=== PATIENT | male | born 1985 | race Caucasian/White ===

== ENCOUNTER 2017-10-16 03:45 | Observation (INO) | payer BC, OTHER ==
[2017-10-16] VITALS (9 sets, daily range): BP systolic 143–179; BP diastolic 87–111; PULSE 93–112; RESP 17–20; TEMP 98; O2SAT 96–98
[~2017-10-16] VITALS: Ht 175.3 cm; Wt 120.0 kg
[~2017-10-16 03:45] MED LIST: ENOX40P SQ; LORT7.5T3 PO
--- NOTE | 2017-10-16 04:32 | PD ---
HPI Chief Complaint: Chest Pain Time Seen by Provider: 04:10 Travel History International Travel<30 days: No Contact w/Intl Traveler<30days: No Traveled to known affect area: No History of Present Illness HPI Patient is a 32-year-old man who was lying down watching TV . He sat up to let his dog out and had severe epigastric pain across his chest patient. Patient has no cardiac history patient had severe burning across his entire epigastrium left and right also. 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) Thoracic Surgery: No Social History Alcohol Use: Yes (wine nightly) Tobacco Use: Yes (1/2 ppd) Substance Use: Yes (marijuana) Allergies-Medications (Allergen,Severity, Reaction): Coded Allergies: ciprofloxacin (Unverified Allergy, Severe, HIVES, 10/16/17) levofloxacin (Unverified Allergy, Severe, HIVES, 10/16/17) Reported Meds & Prescriptions Reported Meds & Active Scripts Active Hydrochlorothiazide 25 Mg Tab 25 Mg PO DAILY Review of Systems Except as stated in HPI: all other systems reviewed are Neg Eyes: No: Diploplia, Blurred Vision Cardiovascular: Positive: Chest Pain or Discomfort, Tachycardia, No: Diaphoresis Respiratory: No: Shortness of Breath, Sneezing Gastrointestinal: No: Nausea, Vomiting, Abdominal Pain Physical Exam Narrative GENERAL: DILATED PUPILS AND TACHYCARDIC AND HTN 180/115 BP SKIN: Warm and dry. HEAD: Atraumatic. Normocephalic. EYES: Pupils equal and round. No scleral icterus. No injection or drainage. ENT: No nasal bleeding or discharge. Mucous membranes pink and moist. NECK: Trachea midline. No JVD. CARDIOVASCULAR: Regular rate and rhythm. TACHY AND HTN 158/95 RESPIRATORY: No accessory muscle use. Clear to auscultation. Breath sounds equal bilaterally. GASTROINTESTINAL: Abdomen soft, non-tender, nondistended. Hepatic and splenic margins not palpable. MUSCULOSKELETAL: Extremities without clubbing, cyanosis, or edema. No obvious deformities. NEUROLOGICAL: Awake and alert. No obvious cranial nerve deficits. Motor grossly within normal limits. Five out of 5 muscle strength in the arms and legs. Normal speech. PSYCHIATRIC: Appropriate mood and affect; insight and judgment normal. Data Data Last Documented VS Vital Signs Date Time Temp Pulse Resp B/P (MAP) Pulse Ox O2 Delivery O2 Flow Rate FiO2 10/16/17 06:09 93 20 158/94 (115) 97 Room Air 10/16/17 03:47 98.0 Orders Orders Electrocardiogram (10/16/17 04:11) Complete Blood Count With Diff (10/16/17 04:11) Basic Metabolic Panel (Bmp) (10/16/17 04:11) Ckmb (Isoenzyme) Profile (10/16/17 04:11) Troponin I (10/16/17 04:11) Chest, Single Ap (10/16/17 04:11) Iv Access Insert/Monitor (10/16/17 04:11) Ecg Monitoring (10/16/17 04:11) Oxygen Administration (10/16/17 04:11) Oximetry (10/16/17 04:11) Hepatic Functional Panel (10/16/17 04:15) CKMB (10/16/17 04:15) CKMB% (10/16/17 04:15) Pantoprazole Inj (Protonix Inj) (10/16/17 05:30) Admit Order (Ed Use Only) (10/16/17 06:26) Place In Observation (10/16/17 06:26) Activity Bed Rest With Brp (10/16/17 06:26) Vital Signs (Adult) Q4H (10/16/17 06:26) Cardiac Rhythm .As Directed (10/16/17 06:26) Notify Dr: Other .PRN (10/16/17 06:26) Notify Dr. Parameters (10/16/17 06:26) Resp Oxygen Nasal Cannula (10/16/17 ) Ckmb (Isoenzyme) Profile (10/16/17 06:26) Ckmb (Isoenzyme) Profile (10/16/17 09:26) Troponin I (10/16/17 06:26) Troponin I (10/16/17 09:26) Electrocardiogram (10/16/17 06:26) Electrocardiogram (10/16/17 09:26) ^ Obtain (10/16/17 06:26) Sodium Chloride 0.9% Flush (Ns Flush) (10/16/17 06:30) Sodium Chloride 0.9% Flush (Ns Flush) (10/16/17 09:00) Aspirin Chew (Aspirin Chew) (10/16/17 06:30) Turpentiner / Telemetry NIDIA.Q8H (10/16/17 06:26) CKMB (10/16/17 07:14) CKMB% (10/16/17 07:14) CKMB (10/16/17 10:15) CKMB% (10/16/17 10:15) Labs Laboratory Tests Test 10/16/17 04:15 White Blood Count 10.5 TH/MM3 Red Blood Count 4.80 MIL/MM3 Hemoglobin 15.3 GM/DL Hematocrit 44.0 % Mean Corpuscular Volume 91.7 FL Mean Corpuscular Hemoglobin 31.8 PG Mean Corpuscular Hemoglobin Concent 34.7 % Red Cell Distribution Width 11.9 % Platelet Count 224 TH/MM3 Mean Platelet Volume 7.4 FL Neutrophils (%) (Auto) 56.4 % Lymphocytes (%) (Auto) 29.5 % Monocytes (%) (Auto) 9.3 % Eosinophils (%) (Auto) 4.0 % Basophils (%) (Auto) 0.8 % Neutrophils # (Auto) 5.9 TH/MM3 Lymphocytes # (Auto) 3.1 TH/MM3 Monocytes # (Auto) 1.0 TH/MM3 Eosinophils # (Auto) 0.4 TH/MM3 Basophils # (Auto) 0.1 TH/MM3 CBC Comment DIFF FINAL Differential Comment Blood Urea Nitrogen 12 MG/DL Creatinine 0.66 MG/DL Random Glucose 99 MG/DL Total Protein 8.1 GM/DL Albumin 3.7 GM/DL Calcium Level 8.2 MG/DL Alkaline Phosphatase 109 U/L Aspartate Amino Transf (AST/SGOT) 76 U/L Alanine Aminotransferase (ALT/SGPT) 117 U/L Total Bilirubin 0.1 MG/DL Direct Bilirubin LESS THAN 0.1 MG/DL Sodium Level 136 MEQ/L Potassium Level 3.8 MEQ/L Chloride Level 103 MEQ/L Carbon Dioxide Level 22.9 MEQ/L Anion Gap 10 MEQ/L Estimat Glomerular Filtration Rate 138 ML/MIN Indirect Bilirubin 0.0 MG/DL Total Creatine Kinase 150 U/L Creatine Kinase MB 5.3 NG/ML Troponin I LESS THAN 0.02 NG/ML MDM Medical Decision Making Medical Screen Exam Complete: Yes Emergency Medical Condition: Yes Differential Diagnosis Myocardial ischemia versus anxiety versus pulmonary embolism versus drug- induced tachycardia versus GERD Narrative Course Patient remained hypertensive and mildly tachycardic. I feel the patient should be admitted for chest pain rule out with repeat troponins and a stress test in the a.m. His hypertension and tachycardic is unexplained possibly due to cardiac ischemia admit to chest pain center Diagnosis Primary Impression: Chest pain Qualified Codes: R07.9 - Chest pain, unspecified Admitting Information Admitting Physician Requests: Observation Scripts Hydrochlorothiazide (Hydrochlorothiazide) 25 Mg Tab 25 MG PO DAILY for Blood Pressure Management, #30 TAB 1 Refill Prov: Lori Ortiz 10/16/17 Condition: Stable Mirza Cruz MD Oct 16, 2017 04:32
[2017-10-16 04:36] LABS: AUTOMATED NEUTROPHIL # 5.9 TH/MM3 (1.8-7.7); BASOPHIL # 0.1 TH/MM3 (0-0.2); BASOPHIL % 0.8 % (0.0-2.0); EOSINOPHIL # 0.4 TH/MM3 (0-0.4); HEMO FLAGS DIFF FINAL; LYMPH % 29.5 % (9.0-44.0); LYMPHOCYTE # 3.1 TH/MM3 (1.0-4.8); MEAN CELL VOLUME 91.7 FL (80.0-100.0); MEAN CORPUSCULAR HEMOGLOBIN 31.8 PG (27.0-34.0); MEAN CORPUSCULAR HGB CONC 34.7 % (32.0-36.0); MONO % 9.3 % (0.0-8.0); NEUT % 56.4 % (16.0-70.0); PLATELET COUNT 224 TH/MM3 (150-450); RED CELL DISTRIBUTION WIDTH 11.9 % (11.6-17.2); WHITE BLOOD COUNT 10.5 TH/MM3 (4.0-11.0)
[2017-10-16 04:59] LABS: ALKALINE PHOSPHATASE 109 U/L (45-117); CREATINE KINASE 150 U/L (39-308); TOTAL BILIRUBIN ADULT 0.1 MG/DL (0.2-1.0)
--- NOTE | 2017-10-16 05:03 | RADRPT ---
EXAM DATE/TIME: 10/16/2017 04:48 [facility] COMPARISON: No previous studies available for comparison. INDICATIONS : Chest pain. MEDICAL HISTORY : None. SURGICAL HISTORY : None. ENCOUNTER: Initial ACUITY: 1 day PAIN SCORE: 3/10 LOCATION: Bilateral chest FINDINGS: A single view of the chest demonstrates the lungs to be symmetrically aerated without evidence of mas s, infiltrate or effusion. The heart size is at the fluid is normal with no perihilar edema. There i s mild eventration of right hemidiaphragm. There are multiple overlying electrocardiogram leads. Osse ous structures are intact. CONCLUSION: No acute disease. Fredrick Wilder MD on October 16, 2017 at 5:01 Board Certified Radiologist. This report was verified electronically.
[2017-10-16 05:09] LABS: ALT (GPT) 117 U/L (12-78); ANION GAP 10 MEQ/L (5-15); AST (GOT) 76 U/L (15-37); BICARBONATE 22.9 MEQ/L (21.0-32.0); BLOOD UREA NITROGEN 12 MG/DL (7-18); CHLORIDE 103 MEQ/L (98-107); GLOMERULAR FILTRATION RATE 138 ML/MIN (>89); POTASSIUM 3.8 MEQ/L (3.5-5.1); SODIUM (NA) 136 MEQ/L (136-145)
[2017-10-16 05:11] LABS: CKMB 5.3 NG/ML (0.5-3.6)
[2017-10-16] MEDS ORDERED: PANTOPRAZOLE SODIUM 40 MG VIAL IV PUSH ONE (05:30)
[2017-10-16] MEDS ORDERED: ASPIRIN 81 MG CHEW TAB PO ONE (06:30)
[2017-10-16] MEDS ORDERED: SODIUM CHLORIDE 0.9% FLUSH 10 ML FLUSH IV FLUSH PRN (06:30)
[2017-10-16] MEDS ORDERED: NITROGLYCERIN 0.4 MG SL 25 TABS/BTL SL PRN (07:30)
[2017-10-16] MEDS ORDERED: ACETAMINOPHEN 500 MG CPLT PO PRN (07:30)
[2017-10-16] MEDS ORDERED: ONDANSETRON HCL 4 MG/2 ML VIAL IV PUSH PRN (07:30)
[2017-10-16 08:08] LABS: CREATINE KINASE 121 U/L (39-308)
[2017-10-16 08:22] LABS: CKMB 5.1 NG/ML (0.5-3.6)
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
[2017-10-16] MEDS ORDERED: HYDROCHLOROTHIAZIDE 25 MG TAB PO ONE (09:00)
[2017-10-16] MEDS ORDERED: SODIUM CHLORIDE 0.9% FLUSH 10 ML FLUSH IV FLUSH SCH (09:00)
[2017-10-16 10:59] LABS: CREATINE KINASE 111 U/L (39-308)
[2017-10-16 11:11] LABS: CKMB 4.8 NG/ML (0.5-3.6)
[2017-10-16] MEDS ORDERED: HYDR25TA5 PO (12:41)
--- NOTE | 2017-10-16 12:41 | HHI.DCPOC ---
Discharge Care Plan Diagnosis: (1) Atypical chest pain (2) Hypertension (3) Tobacco abuse Goals to Promote Your Health * To prevent worsening of your condition and complications * To maintain your health at the optimal level Directions to Meet Your Goals Take your medications as prescribed Follow your dietary instruction Follow activity as directed Keep your appointments as scheduled Take your immunizations and boosters as scheduled If your symptoms worsen call your PCP, if no PCP go to Urgent Care Center or Emergency Room Smoking is Dangerous to Your Health. Avoid second hand smoke Call the 24-hour hour crisis hotline for domestic abuse at Lori Ortiz Oct 16, 2017 12:41
--- NOTE | 2017-10-16 12:41 | TR ---
Date Performed: 10/16/2017 Time Performed: 12:16:21 DOCTOR: Zane Holman DRUG LIST: CLINICAL HISTORY: REASON FOR TEST: REASON FOR ENDING: OBSERVATION: CONCLUSION: Danny protocol completed. Stopped sec to exceeding target heart rate and leg fatigue . Maximum TQ=578 Target HR Achieved=90.0% Maximum CU=732/114 Total Exercise Time=6:31. No ectopy. No reprod chest pain. No st segment changes to sugg ischemia. Good exercise tolerance. Hypertensive bp r esponse. Recovery quick and unremarkable. COMMENTS: Conclusion: Normal treadmill exercise. No evidence of ischemia.
--- NOTE | 2017-10-16 13:49 | EKG ---
Date Performed: 10/16/2017 Time Performed: 07:18:41 PTAGE: 32 years EKG: Sinus rhythm WITH SINUS ARRHYTHMIA NORMAL ECG PREVIOUS TRACING : 10/16/2017 04.13 Since previous tracing, no significant change noted DOCTOR: Zane Holman Interpretating Date/Time 10/16/2017 13:47:12
--- NOTE | 2017-10-16 13:49 | EKG ---
Date Performed: 10/16/2017 Time Performed: 10:18:56 PTAGE: 32 years EKG: Sinus rhythm NORMAL ECG PREVIOUS TRACING : 10/16/2017 07.18 Since previous tracing, no significant change noted DOCTOR: Zane Holman Interpretating Date/Time 10/16/2017 13:49:21
--- NOTE | 2017-10-16 13:49 | EKG ---
Date Performed: 10/16/2017 Time Performed: 04:13:12 PTAGE: 32 years EKG: SINUS TACHYCARDIA ABNORMAL RHYTHM ECG NO PREVIOUS TRACING DOCTOR: Zane Holman Interpretating Date/Time 10/16/2017 13:47:39
[2017-10-17] MEDS ORDERED: ASPIRIN 325 MG TAB PO SCH (09:00)
== END 2017-10-16 13:50 | disposition home or self-care (01) ==
LOC: NEPC 03:45 → NEDA 06:39
PROVIDERS: ADMIT Internal Medicine Cardiovascular Disease; ATTEND Internal Medicine Cardiovascular Disease
DX: R07.89 Other chest pain (principal); R00.0 Tachycardia, unspecified; I10 Essential (primary) hypertension; F17.210 Nicotine dependence, cigarettes, uncomplicated
CPT/HCPCS: 71010; 80048; 80076; 82550; 82552; 83690; 84484; 85025; 93005; 93017; 99285; C9113; G0378